=== PATIENT | male | born 1955 | race Caucasian/White ===

== ENCOUNTER 2016-07-14 06:15 | Day surgery (SDC) | payer OTHER, MEDICAID ==
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
[~2016-07-14 06:15] MED LIST: LIDOCAINE 1% 5 ML SDV ONE; ceFAZolin 2 GM/DEXTROSE 100 ML IV ONE
[2016-07-14] MEDS ORDERED: LIDOCAINE 1% 30 ML SDV ONE (07:01)
[2016-07-14] MEDS ORDERED: LIDO/EPI 1% **Not for Epidural 20 ML MDV ONE (07:02)
[2016-07-14] MEDS ORDERED: BUPIVACAINE 0.25% 30 ML SDV ONE (07:02)
[2016-07-14] MEDS ORDERED: fentaNYL 100 MCG/2 ML INJ ONE ×2 (07:04→07:32)
[2016-07-14] MEDS ORDERED: ceFAZolin 1 GM/5 ML SYR ONE (07:04)
[2016-07-14] MEDS ORDERED: PROPOFOL/EMULSION 500 MG/50 ML BOTTLE IV ONE ×3 (07:05→08:22)
[2016-07-14] MEDS ORDERED: MIDAZOLAM 2 MG/2 ML VIAL ONE (07:07)
[2016-07-14] MEDS ORDERED: LR 1,000 ML IV ONE (07:11)
[2016-07-14] MEDS ORDERED: LIDOCAINE 1% 5 ML SDV ID PRN (07:11)
--- NOTE | 2016-07-18 14:33 | GOP ---
DATE OF OPERATION: 07/14/2016 SURGEON: Noel Huang DPM ANESTHESIA: IV general. PREOPERATIVE DIAGNOSIS: 1. Hallux valgus deformity, left great toe. 2. Hammer digit deformity 2nd, 4th and 5th toes, left foot. POSTOPERATIVE DIAGNOSIS: 1. Hallux valgus deformity, left. 2. Hammertoes 2, 3, 4, and 5, left. PROCEDURE PERFORMED: 1. Modified Padilla bunionectomy with osteotomy screw fixation. 2. Chemo osteotomy with screw fixation. 3. Modified post arthroplasty, 2nd toe. 4. Tenotomy capsulotomy to the 4th and 5th toes on the left foot. FINDINGS: ESTIMATED BLOOD LOSS: Less than 10 cc. DESCRIPTION OF PROCEDURE: The patient was taken to the operating room, placed supine position after local and MAC anesthesia. The left lower extremity was then elevated, prepped and draped in the [facility] sterile OR fashion, achieving a sterile field about the entire distal aspect of the extremity. After elevation and exsanguination, tourniquet was inflated to 225 mmHg. Attention was directed to the left great toe, where approximately a 3 inch linear incision was made on the dorsal aspect of the great toe joint just medial to the extensor hallucis longus tendon. Car e was taken to preserve the neurovascular status to the area, and all superficial vessels were clamp ed and bovied as necessary. The 1st intermetatarsal space was entered via sharp and blunt dissection. The adductor tendon was i dentified and released sharply from its attachments into the base of the proximal phalanx, as well a s into the sesamoidal apparatus. I could manually move the great toe into a corrected position at t his point. A dorsal capsular incision was then made from the distal third of the metatarsal into the base of th e proximal phalanx. The joint capsule and periosteum were reflected medially and laterally. There was significant dorsal bony spurring on the great toe joint, large bony prominence on the medial asp ect of the 1st metatarsal. These were all removed utilizing a bone saw and rasped smooth utilizing a rotary bur. There was some spurring on the base of the proximal phalanx also and this was removed utilizing a rongeur and rasped smooth utilizing a rotary bur. Approximately 25% of the metatarsal head was devoid of cartilage in different punctate areas. All these areas were flushed clean. Any loose cartilage was removed, and a 0.35 K-wire was utilized to drill these areas out for fibrocartil age formation. At this point, the 0.35 K-wire was then placed through the metaphysis of the metatarsal, orienting t he K-wire such that it would slightly plantar flex the metatarsal head upon doing the osteotomy. A V or chevron-type osteotomy was then carried out. The metatarsal head was shifted laterally, impact ed upon itself, and held fast with the same 0.35 K-wire. Utilizing AO technique, a single 2.4 mm Os teomed screw was placed in a lag technique through the dorsal wing of the 1st metatarsal head and re trograded back into the metatarsal with excellent compression noted. Redundant bone was removed med ially as the K-wire was removed from the operative site and this was all rasped smooth utilizing a r otary bur. There was excellent bony apposition noted intraoperatively around the metatarsal head. The area was flushed copiously with dilute antibiotic solution and the great toe was taken through a range of motion. It was still pushing on the 2nd toe. It was deemed necessary to do a secondary p rocedure, the Chemo osteotomy with screw fixation. Attention was then directed to the proximal phalanx, where the periosteum was incised dorsally, refl ected medially and laterally, and utilizing the bone saw an oblique wedge osteotomy was carried out with the apex proximal lateral on the proximal phalanx. This wedge of bone was removed, approximate ly 2 mm, triangulated down to a point at the apex of the osteotomy. This bone was removed from the operative site. Utilizing a fracture reduction clamp, the great toe was swung away from the 2nd toe and the osteotomy was closed temporarily utilizing a bone clamp. Again, utilizing AO technique 2 parallel 2.4 mm Osteomed screws were placed perpendicular to the ost eotomy site with excellent compression noted. The area was flushed copiously with dilute antibiotic solution. The clamp was removed from the operative site. The great toe was taken through a range of motion and deemed to be anatomically aligned. There was no dorsal jamming of the metatarsal and it had fluid motion to about 40 degrees of dorsiflexion from neutral. Redundant capsule was capsulotomized medially. The area was flushed copiously again. At this point , the capsule was reapproximated utilizing 3-0 Vicryl in a simple interrupted suture. Periosteum wa s reapproximated utilizing 4-0 Vicryl in a simple interrupted suture. Subcutaneous tissue was close d via 4-0 Vicryl in a horizontal mattress suture and skin closure was carried out via 4-0 Prolene in a running subcuticular stitch. At this point, attention was directed to the 2nd toe, where approximately a 1.5-inch linear incision was made from the intermediate phalanx proximally to the metatarsophalangeal joint again, taking ca re to preserve the neurovascular status to the area. The extensor tendon was identified. It was re sected transversely at the proximal interphalangeal joint, as well as the collateral ligaments utili zing a 6400 blade. The head of the proximal phalanx was dorsiflexed into the operative site and it was resected utilizing a bone saw, along with the base of the intermediate phalanx. At this point, I did #1 make sure that the toe was in a nice parabola with the lesser digits and I also wanted to m octaviano sure that the toe was anatomically aligned, which was indeed the case. At this point, the area was flushed copiously. The tendon and joint capsule were reapproximated uti lizing 4-0 Vicryl in a modified horizontal mattress type suture. The subcu closure was carried out via 4-0 Vicryl in a horizontal mattress suture and skin closure was carried out via 4-0 Prolene in a horizontal mattress and simple interrupted suture. At this point, attention was directed to the plantar aspect of the 4th and 5th toes, where a small l inear incision 0.5-inch was made at the proximal interphalangeal joint on the bottom of the toes. T he flexor tendons were identified and released sharply, as well as the proximal interphalangeal join t capsules. Upon release of the tendons and capsules, the toes derotated into a more corrected posi tion. They were more anatomically aligned at this point. I reviewed the entire foot at this point t o make sure all digits were uniformly straight and that the toes were anatomically aligned. This wa s indeed the case. The 4-0 Prolene was utilized to close the plantar incisions on the 4th and 5th t oes in a horizontal mattress type suture. At this point, Steri-Strips were utilized on the great toe with Mastisol, and then Adaptic was place d over all incisions along with sterile 4x4s, Seng, and Coban. The tourniquet was released. All d igits returned to a uniform and pink color within 5 minutes postop. Again, the estimated blood loss was less than 10 cc. There were no complications and there were no drains placed into the operativ e site. All postoperative instructions were reiterated. The patient went into recovery in a satisfactory st ate with all vital signs stable. His prognosis is very good for rapid recovery, and he will be foll owed up 4 days postop at [facility] [place]. He was given my cell phone number, person al number for 24 hour call should he have any problems over the weekend. All postoperative instruct ions were reiterated in recovery again. COMPLICATIONS: None. DRAINS: None into the operative site. HEMOSTASIS: A tourniquet inflated to 225 mmHg. Total tourniquet time was approximately 1 hour and 15 minutes. /[id number]/MODL
== END 2016-07-14 12:20 | disposition home or self-care (01) ==
LOC: FSGY 06:15
PROVIDERS: ATTEND Podiatrist
PROC: 0QSR04Z Reposition Left Toe Phalanx with Internal Fixation Device, Open Approach (ICD-10-PCS; principal; 2016-07-14 07:15)
PROC: 0QBP0ZZ Excision of Left Metatarsal, Open Approach (ICD-10-PCS; principal; 2016-07-14 07:15)
DX: M20.12 Hallux valgus (acquired), left foot (principal); M20.42 Other hammer toe(s) (acquired), left foot
CPT/HCPCS: 28285; 28299; C1769; C1713; J0690; J2250; J2704; J3010